=== PATIENT | female | born 1955 | race Caucasian/White ===

== ENCOUNTER 2017-08-23 07:27 | Day surgery (SDC) | payer BC ==
[~2017-08-23] VITALS: Ht 152.4 cm; Wt 51.8 kg
[2017-08-23] MEDS ORDERED: PROPOFOL 40 ML ONE (07:42)
[2017-08-23 08:18] VITALS: Ht 152.4 cm; Wt 51.8 kg
[2017-08-23] MEDS ORDERED: URSO300C3 PO (08:26)
[2017-08-23 08:58] VITALS: BP 101/52; PULSE 58; RESP 22
--- NOTE | 2017-08-23 09:40 | OPPN ---
Date/Time of Note Date/Time of Note DATE: 08/23/17 TIME: 09:38 Proc Note GI Procedure Date 08/23/17 Indication: diagnostic Pre-procedure Diagnosis heart burn h/o colon polyps Post-procedure Diagnosis milod gerd mild gastritis diffuse colitis Procedure Performed: Endoscopy, Colonoscopy Surgeon see signature line Master Hearth Technician none Anesthesia Type: MAC Tourniquet Time none EBL none Transfusion required none Biopsy 1: gastric and colonic bx Grafts/Implants none Tubes/Drains none Complication(s) none Disposition: other Procedure Description egd and colonoscopy performed mild gerd and gastritis noted bx done colonoscopy showed diffuse colitis bx done EAGLE BENITO MD Aug 23, 2017 09:40
[2017-08-23 09:59] VITALS: BP 93/55; PULSE 57; RESP 18
--- NOTE | 2017-08-23 14:24 | GILP ---
DATE OF PROCEDURE: PROCEDURE: Esophagogastroduodenoscopy. PREOPERATIVE DIAGNOSIS: The patient presenting with history of chronic heartburn unresponsive to ro utine therapy, rule out esophagitis, peptic ulcer disease. POSTOPERATIVE DIAGNOSES: 1. Mild reflux esophagitis. 2. Mild antral gastritis. Biopsy was done to rule out Helicobacter pylori infection. DESCRIPTION OF PROCEDURE: After informed written consent was obtained, the patient was asked to lie on the left lateral side. Intravenous anesthesia was given by anesthesiologist, Dr. Agudelo. When the patient became somnolent, the Olympus video upper endoscope was introduced into the oropharynx, the n into the esophagus. Esophagus showed minimal erythema above the GE junction indicating mild reflu x esophagitis. Scope at this time was advanced into the stomach. Stomach showed evidence of severa l areas of erythema in the antrum with thickening of the prepyloric mucosa. The rest of the stomach appeared normal. Biopsy was done from the antrum, the lesser curvature and the fundus to rule out H. pylori infection. Scope at this time was advanced into the duodenum. Entire duodenum up to the end of the third portion appeared normal with no mucosal abnormality. Endoscope at this time was wi thdrawn and on the way out, the above findings were confirmed and the procedure was terminated. PLAN: Recommend omeprazole 40 mg a day and wait for the pathology report. Dictated By: EAGLE BAIN/YOHAN Conf#: [id number] DID#: [id number] CC: Unknown [place];*EndCC*
--- NOTE | 2017-08-23 15:28 | GILP ---
DATE OF PROCEDURE: NAME OF PROCEDURE: Colonoscopy up to cecum. PREOPERATIVE DIAGNOSIS: History of colon polyps, rule out recurrence of colon polyps. POSTOPERATIVE DIAGNOSES: Diffuse colitis noted, more colitis noted in the right colon to the extent of 2 to 3+, 1+ colitis noted in the descending colon, transverse colon appeared normal. DESCRIPTION OF PROCEDURE: After informed written consent was obtained, the patient was asked to lie on the left lateral side. Intravenous anesthesia was given by anesthesiologist, Dr. Agudelo. When the patient became somnolent, the Olympus video colonoscope was introduced into the rectum and advanced all the way to the cecum. Right side of the colon, ascending colon showed evidence of several area s of erythema. The folds appeared to be also eaten by the colitis-type picture. No smooth appearan ce of the normal mucosa noted. Multiple biopsies were obtained to rule out inflammatory bowel disea se. Transverse colon appeared relatively normal. Biopsies were obtained. Descending colon showed several areas of erythema, mostly in the sigmoid and distal descending colon. Biopsies were obtaine d. Retroflexion was performed. Skin tags were noted. No hemorrhoids were noted and the procedure was terminated. PLAN: Recommend wait for the pathology report. She will probably need Asacol HD. We will wait for the pathology report. Dictated By: EAGLE BAIN/YOHAN Conf#: [id number] DID#: [id number] CC: Unknown [place];*EndCC*
== END 2017-08-23 11:58 | disposition home or self-care (01) ==
LOC: GIL 07:27
PROVIDERS: ATTEND Internal Medicine Gastroenterology
DX: Z86.010 Personal history of colon polyps (principal); K52.89 Other specified noninfective gastroenteritis and colitis; K29.50 Unspecified chronic gastritis without bleeding; K21.0 Gastro-esophageal reflux disease with esophagitis
CPT/HCPCS: 43239; 45378; Z7610; 88305; 88312